=== PATIENT | male | born 1990 | race African-American/Black ===

== ENCOUNTER 2018-10-21 15:12 | Emergency (ER) | payer SELFPAY ==
[2018-10-21 15:21] VITALS: BP 120/84
--- NOTE | 2018-10-21 16:20 | ER Document Report ---
ED Medical Screen (RME) - General Chief Complaint: Laceration Stated Complaint: EYE LACERATION,RASH Time Seen by Provider: 10/21/18 16:08 TRAVEL OUTSIDE OF THE [place] IN LAST 30 DAYS: No - HPI Notes: 10/21/18 16:15 Patient is a 28-year-old male no significant past medical history who presents complaining of laceration between his Rt upper eyelid and right eyebrow status post injury prior to arrival. Patient states that he hit his head off of his air compressor. Last tetanus was about 1 to 2 months ago. He did not lose conscious or have any nausea vomiting. Patient is also complaining of a rash to the right side of his groin is been present for the past couple days. Patient states that the rash is pruritic. He is urinating normally without any urethral discharge. No troubles with his bowel movements. Denies drug allergies. Denies OSORIO, fever, neck pain, URI, CP, SOB, Abd pain, dysuria, back pain, or rash. I have treated and performed a rapid initial assessment of this patient. A comprehensive ED assessment and evaluation of the patient, analysis of test results and completion of medical decision making process will be conducted by additional ED providers. PHYSICAL EXAMINATION: GENERAL: Well-appearing, well-nourished and in no acute distress. A&Ox4. Answers questions appropriately. Rt eye: + 1.5x0.3cm superficial laceration noted above rt eyelid. No raccoon eyes. PERRLA, EOMI b/l. Neuro: Cranial nerves grossly intact. NIH 0. GCS 15. - Related Data Allergies/Adverse Reactions: No Known Allergies Allergy (Verified 10/21/18 15:13) Physical Exam - Vital signs Vitals: Temp Pulse Resp BP Pulse Ox 97.8 F 52 L 14 120/84 97 10/21/18 15:20 10/21/18 15:20 10/21/18 15:20 10/21/18 15:20 10/21/18 15:20 Course - Vital Signs Vital signs: Temp Pulse Resp BP Pulse Ox 97.8 F 52 L 14 120/84 97 10/21/18 15:20 10/21/18 15:20 10/21/18 15:20 10/21/18 15:20 10/21/18 15:20
== END 2018-10-21 17:40 | disposition left against medical advice (07) ==
LOC: ER 15:12
DX: S01.111A Laceration without foreign body of right eyelid and periocular area, initial encounter (principal); W22.09XA Striking against other stationary object, initial encounter; R21 Rash and other nonspecific skin eruption
CPT/HCPCS: 99281